=== PATIENT | female | born 1970 | race Caucasian/White ===

== ENCOUNTER 2019-11-10 19:26 | Emergency (ER) | payer OTHER ==
[~2019-11-10] VITALS: Ht 157.5 cm; Wt 68.2 kg
[2019-11-10 19:56] VITALS: Ht 157.5 cm; Wt 68.2 kg
[2019-11-10] MEDS ORDERED: NORCO-7.51 TAB PO (20:59)
[2019-11-10 21:05] VITALS: BP 143/71
== END 2019-11-10 21:05 | disposition home or self-care (01) ==
LOC: D.ER 19:26
DX: M25.561 Pain in right knee (principal); V89.2XXA Person injured in unspecified motor-vehicle accident, traffic, initial encounter